=== PATIENT | female | born 1975 | race Caucasian/White ===

== ENCOUNTER 2020-12-21 10:21 | Emergency (ER) | payer OTHER ==
--- NOTE | 2020-12-21 10:42 | ED Physician Documentation ---
PD HPI CHEST PAIN - Stated complaint Stated Complaint: PALPITATIONS/CHEST PX - Chief complaint Chief Complaint: Resp - History obtained from History obtained from: Patient - History of Present Illness Timing - onset: Yesterday Timing - onset during: Light activity Timing - duration: Days (2) Timing - details: Waxing and waning Quality: Pressure, Tightness, Sharp (at times) Location: Substernal, Left chest Radiation: Neck, Left upper extremity (shoulder area) Improved by: No: Rest Worsened by: No: Exertion, Inspiration Associated symptoms: Shortness of air, Cough. No: Nausea, Vomiting, Feeling faint / dizzy, Palpitations Similar symptoms before: Has not had sx before Recently seen: Not recently seen Review of Systems Constitutional: denies: Fever, Chills Nose: denies: Rhinorrhea / runny nose, Congestion Throat: denies: Sore throat Cardiac: reports: Chest pain / pressure. denies: Palpitations, Pedal edema, Calf pain Respiratory: reports: Dyspnea, Cough. denies: Wheezing GI: denies: Abdominal Pain, Nausea, Vomiting, Diarrhea Skin: denies: Rash, Lesions Musculoskeletal: denies: Extremity swelling PD PAST MEDICAL HISTORY - Past Medical History Cardiovascular: None Respiratory: None Neuro: None Endocrine/Autoimmune: None - Present Medications Home Medications: Ambulatory Orders Medication Instructions Recorded Confirmed Albuterol Sulf [Ventolin Hfa 2 - 3 puffs INH Q4HR PRN #1 inhaler 12/21/20 Inhaler] Famotidine [Pepcid] 1 tab PO DAILY 12/21/20 12/21/20 buPROPion [Wellbutrin Sr] 1 tab PO DAILY 12/21/20 12/21/20 - Allergies Allergies/Adverse Reactions: Allergies Allergy/AdvReac Type Severity Reaction Status Date / Time thiago Allergy Anaphylaxis Verified 12/21/20 10:31 PD ED PE NORMAL - Vitals Vital signs reviewed: Yes - General General: Alert and oriented X 3 - HEENT HEENT: Moist mucous membranes, Pharynx benign - Neck Neck: Supple, no meningeal sign, No adenopathy - Cardiac Cardiac: RRR, No murmur - Respiratory Respiratory: Clear bilaterally, Other (no chestwall tenderness) - Abdomen Abdomen: Soft, Non tender - Derm Derm: Normal color, Warm and dry - Extremities Extremities: Normal ROM s pain, No edema, No calf tenderness / cord - Neuro Neuro: Alert and oriented X 3, No motor deficit, Normal speech Results - Vitals Vitals: Vital Signs - 24 hr 12/21/20 12/21/20 12/21/20 10:25 10:40 12:30 Temperature 36.7 C 36.7 C Heart Rate 84 78 70 Respiratory 20 14 12 Rate Blood Pressure 128/82 H 114/84 H 99/67 O2 Saturation 98 100 98 12/21/20 12:36 Temperature Heart Rate 99 Respiratory 16 Rate Blood Pressure 99/67 O2 Saturation 98 Oxygen O2 Source Room air - EKG (time done) 10:32 Rate: Rate (enter#) (72) Rhythm: NSR [place]: Normal Intervals: Normal [place] QRS: Normal Ischemia: Normal ST segments. No: ST elevation c/w ischemia, ST depression - Labs Labs: Laboratory Tests 12/21/20 12/21/20 12/21/20 10:35 10:35 10:35 WBC 7.7 RBC 4.67 Hgb 13.9 Hct 42.1 MCV 90.1 MCH 29.8 MCHC 33.0 RDW 12.6 Plt Count 206 MPV 11.3 H Neut # (Auto) 6.1 Lymph # (Auto) 1.1 L [place] # (Auto) 0.4 Eos # (Auto) 0.1 Baso # (Auto) 0.0 Absolute Nucleated RBC 0.00 Nucleated RBC % 0.0 D-Dimer Sodium 138 Potassium 4.2 Chloride 104 Carbon Dioxide 25 Anion Gap 9.0 BUN 9 Creatinine 0.8 Estimated GFR (MDRD) 77 L Glucose 104 H Calcium 9.5 Magnesium Total Bilirubin 0.6 AST 14 ALT 16 Alkaline Phosphatase 32 L Troponin I High Sens 3.6 C-Reactive Protein B-Natriuretic Peptide Total Protein 7.4 Albumin 4.4 Globulin 3.0 Albumin/Globulin Ratio 1.5 Lipase 21 L 12/21/20 12/21/20 12/21/20 11:18 11:18 11:18 WBC RBC Hgb Hct MCV MCH MCHC RDW Plt Count MPV Neut # (Auto) Lymph # (Auto) [place] # (Auto) Eos # (Auto) Baso # (Auto) Absolute Nucleated RBC Nucleated RBC % D-Dimer < 200.0 L Sodium Potassium Chloride Carbon Dioxide Anion Gap BUN Creatinine Estimated GFR (MDRD) Glucose Calcium Magnesium 1.9 Total Bilirubin AST ALT Alkaline Phosphatase Troponin I High Sens C-Reactive Protein < 1.0 B-Natriuretic Peptide 25 Total Protein Albumin Globulin Albumin/Globulin Ratio Lipase - Rads (name of study) chest xray Radiology: Prelim report reviewed, See rad report PD MEDICAL DECISION MAKING - ED course Complexity details: reviewed results (negative testing. Presume some environmental irritant with dyspnea. ), considered differential (visiting, drove up from [place] to attend with sick parent. Returning tomorrow. Has had dyspnea with some chest pain and is concerned about heart related. I would check for PE as well, though low clinical suspicion. ), d/w patient Departure - Departure Disposition: Home, Self Care Clinical Impression: Chest pressure Dyspnea Qualifiers: Dyspnea type: shortness of breath Qualified Code(s): R06.02 - Shortness of breath Condition: Stable Record reviewed to determine appropriate education?: Yes Instructions: ED Chest Pain Atypical Unkn Cause Prescriptions: Albuterol Sulf [Ventolin Hfa Inhaler] 2 - 3 puffs INH Q4HR PRN #1 inhaler PRN Reason: Shortness Of Air/Wheezing Comments: Your blood tests EKG and chest x-ray are normal here. No signs of heart attack, heart failure, blood clots, pneumonia, collapsed lung. This may be some reactive airway and irritation of the bronchials. You could try an albuterol inhaler 2 to 3 puffs 4 times a day and extra times if needed. Consider possibly atypical esophagitis (irritation of the esophagus from reflux) and could also add in some antacids several times daily. Recheck if not improved well over the next several days and return if worsening or follow-up with your primary care back home. Discharge Date/Time: 12/21/20 13:03
[2020-12-21 10:45] LABS: BASOPHILS % (AUTO) 0.4 %; EOSINOPHILS # (AUTO) 0.1 10^3/uL (0.0-0.7); HCT - HEMATOCRIT 42.1 % (37.0-47.0); HGB - HEMOGLOBIN 13.9 g/dL (12.0-16.0); LYMPHOCYTES # (AUTO) 1.1 10^3/uL (1.5-3.5); LYMPHOCYTES % (AUTO) 14.6 %; MEAN CORPUSCULAR HEMOGLOBIN 29.8 pg (27.0-31.0); MEAN CORPUSCULAR VOLUME 90.1 fL (81.0-99.0); MEAN PLATELET VOLUME 11.3 fL (7.9-10.8); MONOCYTES # (AUTO) 0.4 10^3/uL (0.0-1.0); MONOCYTES % (AUTO) 4.7 %; NEUTROPHILS # (AUTO) 6.1 10^3/uL (1.5-6.6); NEUTROPHILS % (AUTO) 78.9 %; PLT - PLATELET COUNT 206 10^3/uL (130-450); RED BLOOD COUNT 4.67 10^6/uL (4.20-5.40); RED CELL DISTRIBUTION WIDTH 12.6 % (12.0-15.0); WHITE BLOOD COUNT 7.7 x10^3/uL (4.8-10.8)
[2020-12-21] MEDS ORDERED: LIDOCAINE VISCOUS 2% 15 ML UDC MM STA (11:07)
[2020-12-21] MEDS ORDERED: KETOROLAC 30 MG/ML VIAL IVP STA (11:07)
[2020-12-21] MEDS ORDERED: MAG HYDROX/AL HYDROX/SIMETH 30 ML UDC PO STA (11:07)
--- NOTE | 2020-12-21 11:21 | XRAY Report ---
PROCEDURE: Chest 1 View X-Ray INDICATIONS: Chest pain TECHNIQUE: One view of the chest was acquired. COMPARISON: None FINDINGS: Surgical changes and devices: None. Lungs and pleura: No pleural effusions or pneumothorax. Lungs are clear. Mediastinum: Mediastinal contours appear normal. Heart size is normal. Bones and chest wall: No suspicious bony lesions. Overlying soft tissues appear unremarkable. IMPRESSION: No acute cardiopulmonary disease process. Reviewed by: Sherry Sullivan MD, PhD on 12/21/2020 11:19 AM PDT Approved by: Sherry Sullivan MD, PhD on 12/21/2020 11:19 AM PDT Station ID: [id number]
[2020-12-21 11:30] LABS: ALBUMIN 4.4 g/dL (3.2-5.5); ALBUMIN/GLOBULIN RATIO 1.5 (1.0-2.2); BILIRUBIN,TOTAL 0.6 mg/dL (0.2-1.0); CALCIUM 9.5 mg/dL (8.5-10.3); CREATININE 0.8 mg/dL (0.4-1.0); POTASSIUM 4.2 mmol/L (3.5-5.0); TOTAL PROTEIN 7.4 g/dL (6.7-8.2)
[2020-12-21 11:49] LABS: MAGNESIUM 1.9 mg/dL (1.7-2.8)
[2020-12-21 11:52] LABS: CRP - C-REACTIVE PROTEIN < 1.0 mg/dL (0-1.0)
[2020-12-21 12:37] VITALS: BP 99/67
== END 2020-12-21 13:03 | disposition home or self-care (01) ==
LOC: ED 10:21
DX: R07.89 Other chest pain (principal); R06.02 Shortness of breath
CPT/HCPCS: 36415; 71045; 80053; 83690; 83735; 83880; 84484; 85025; 85379; 86140; 93005; 96374; 99284; A9270